=== PATIENT | male | born 1975 | race Caucasian/White ===

== ENCOUNTER → 2020-11-11 | Outpatient (CLI) | payer SELFPAY ==
--- NOTE | 2020-11-11 15:40 | Diagnostic Imaging Report ---
INDICATION: History of diabetes, elevated cholesterol and family history of heart disease. TECHNIQUE: CT cardiac calcium score study performed with noncontrast CT through the cardiac silhouette, with calculation of calcium score. All CT scans use one or more of the following dose optimizing techniques: automated exposure control, MA and/or KvP adjustment based on patient size and exam type or iterative reconstruction. FINDINGS: Visualized portions of the mediastinum showed no adenopathy. Aorta is normal in caliber. Visualized portions of the lung whitman are clear except for minimal scarring in the left lower lobe. Calculated calcium score was 1.7 for a minimal lesion in the circumflex coronary artery, remaining vessels showed no significant calcification. IMPRESSION: Calcium score of 1.7 was calculated, compatible with minimal plaquing in the circumflex territory. Remaining vessels showed no calcifications. There are no incidental findings. Dictated by: Dictated on workstation # [id number]
== END ==
LOC: RAD FS 14:22
PROVIDERS: ATTEND Family Medicine
DX: E78.00 Pure hypercholesterolemia, unspecified (principal); Z82.49 Family history of ischemic heart disease and other diseases of the circulatory system; Z86.39 Personal history of other endocrine, nutritional and metabolic disease
CPT/HCPCS: 75571